=== PATIENT | male | born 1995 | race Caucasian/White ===

== ENCOUNTER 2020-09-07 20:39 | Emergency (ER) | payer BC, MEDICAID ==
[~2020-09-07] VITALS: Ht 170.2 cm; Wt 117.9 kg
[2020-09-07 20:46] VITALS: BP_SYST 137
--- NOTE | 2020-09-07 20:55 | NUR ---
Patient to ER bed 5 to gown for evaluation. Side rails up.
--- NOTE | 2020-09-07 21:04 | NUR ---
ER at bedside examining patient.
--- NOTE | 2020-09-07 21:05 | NUR ---
PT SITTING IN CHAIR COMPLAINING OF LEFT KNEE PAIN AND SWELLING. (+) ABRASIONS. PT ALERT BUT NONVERBAL. MOTHER AT BEDSIDE. INFO RECEIVED FROM MOTHER. MOTHER STATES THAT THEY WERE WALKING YESTERDAY AND PATIENT TRIPPED ON POTHOLE AND FELL. MOTHER DENIES ANY HEAD INJURY OR LOSS OF CONSCIOUSNESS.
[2020-09-07] MEDS ORDERED: DIPH-TET-PERTUS Vaccine 0.5 ML VIAL (ADACEL) I.M. ONE (21:15)
--- NOTE | 2020-09-07 21:44 | NUR ---
Patient given TDaP with the assistance of 2 RNS. Patient tolerated well.
[2020-09-07 22:30] VITALS: BP_SYST 137
== END 2020-09-07 22:36 | disposition home or self-care (01) ==
LOC: SED 20:39
DX: S83.8X2A Sprain of other specified parts of left knee, initial encounter (principal); Z88.1 Allergy status to other antibiotic agents; Z88.2 Allergy status to sulfonamides; W18.39XA Other fall on same level, initial encounter; Y93.89 Activity, other specified; Y92.89 Other specified places as the place of occurrence of the external cause; Y99.8 Other external cause status
CPT/HCPCS: 73564; 90715; 99283